=== PATIENT | male | born 1950 | race Caucasian/White ===

== ENCOUNTER 2019-11-06 16:41 | Emergency (ER) | payer BC, MEDICARE ==
[~2019-11-06] VITALS: Ht 185.4 cm; Wt 68.0 kg
[2019-11-06] MEDS ORDERED: LEVO-T50 MCG PO (16:58)
[2019-11-06] MEDS ORDERED: ZOLOFT50 M1 PO (16:59)
[2019-11-06] MEDS ORDERED: KEFLEX500 M1 PO (18:21)
[2019-11-06 18:56] VITALS: BP 123/77
== END 2019-11-06 18:57 | disposition home or self-care (01) ==
LOC: M.ERS 16:41
DX: S61.213A Laceration without foreign body of left middle finger without damage to nail, initial encounter (principal); W23.0XXA Caught, crushed, jammed, or pinched between moving objects, initial encounter; Y93.89 Activity, other specified; Y92.89 Other specified places as the place of occurrence of the external cause; Y99.8 Other external cause status